=== PATIENT | female | born 1945 | race Caucasian/White ===

== ENCOUNTER 2021-09-19 03:33 | Outpatient (RCR) | payer MEDICARE, SELFPAY | END 2021-10-06 23:59 | disposition home or self-care (01) | LOC: INF 03:33 | PROVIDERS: PCP Nurse Practitioner Family; Visit Provider Family Medicine | DX: Z29.8 Encounter for other specified prophylactic measures (principal) | CPT/HCPCS: 96372; Q0220 ==